=== PATIENT | female | born 1985 | race Caucasian/White ===

== ENCOUNTER 2022-12-06 13:41 | Outpatient (CLI) | payer OTHER, SELFPAY | END 2022-12-06 13:42 | disposition home or self-care (01) | LOC: ANHBWCAUD 13:42 | PROVIDERS: Visit Provider Otolaryngology | DX: H90.3 Sensorineural hearing loss, bilateral (principal) | CPT/HCPCS: 92557; 92567 ==

== ENCOUNTER 2024-08-31 14:35 | Emergency (ER) | payer SELFPAY ==
--- OUTSIDE RECORDS SUMMARY | 2024-08-31 14:37 | XMS_ITS | Clinical Summary ---
Author Organization [facility] Address [address] [place] [address] Phone Care Team Providers Care Media Relations Intern Name Role Phone Provider, None Primary Care Provider Unavailabl e Allergies Active Allergy Reactions Criticality Noted Date Comments Amoxicillin Hives 07/15/2018 Ciprofloxacin Hives 07/15/2018 Codeine Anaphylaxis 07/15/2018 Prednisone Hives 07/15/2018 Medications No known medications Social History Tobacco Use Types Packs/Day Years Used Date Smoking Tobacco: Every Day Cigarettes Smokeless Tobacco: Never Alcohol Use Standard Drinks/Week Comments Not Currently 0 (1 standard drink = 0.6 oz pur e alcohol) Comments No Sex and Gender Information Value Date Recorded Sex Assigned at Not on file Legal Sex Female 12:28 AM CDT Gender Identity Not on file Sexual Orientation Not on file Last Filed Vital Signs Vital Sign Reading Time Taken Comments Blood Pressure 133/86 07/15/2018 8:33 PM CDT Pulse 99 07/15/2018 8:33 PM CDT Temperature 38.3 C (101 F) 07/15/2018 7:09 PM CDT Respiratory Rate 18 07/15/2018 8:33 PM CDT Oxygen Saturation 92% 07/15/2018 8:33 PM CDT Inhaled Oxygen Concentration - - Weight 136.1 kg (300 lb) 07/15/2018 7:09 PM CDT Height 167.6 cm (5' 6 ) 07/15/2018 7:09 PM CDT Body Mass Index 48.42 07/15/2018 7:09 PM CDT Plan of Treatment Not on file Insurance MEDICAID [facility] Care Teams Media Relations Intern Relationship Specialty Start Date End Date Provider, None [place] PCP - General 07/15/18
--- OUTSIDE RECORDS SUMMARY | 2024-08-31 14:37 | XMS_ITS | Referral Summary ---
Author Organization [facility] Healthcare Address [address] [place] [address] Care Team Providers Care Growth Media Mixer Mushroom Name Role Phone Cheryl Medina ALEX Primary Care Provider [phone] Allergies Active Allergy Reactions Criticality Noted Date Comments Azithromycin Swelling Medium 07/22/2023 Ciprofloxacin Rash,Other (See comments) Reaction: RASH, ITCH, Codeine Angioedema Medium Reaction: FACIAL SWELLING, Penicillins Itching Reaction: ITCHING Prednisone Sulfamethoxazole Hives Medium 07/22/2023 Medications traMADoL (ULTRAM) 50 mg tablet Take 1 tablet (50 mg total) by mouth every 6 (six) hours 20 tablet 07/22/2023 Active Social History Tobacco Use Types Packs/Day Years Used Date Smoking Tobacco: Every Day Cigarettes Tobacco Cessation:Ready to Q uit: Not Asked; Counseling Given: Not Answered Personal Safety Answer Date Recorded Have you ever been in or are you currently in a harmful physical or emotional relationship or is someone making you feel afraid or unsafe? Denies 07/22/2023 Comments No Sex and Gender Information Value Date Recorded Sex Assigned at Not on file Legal Sex Female 3:[address] Gender Identity Not on file Sexual Orientation Not on file Last Filed Vital Signs Vital Sign Reading Time Taken Comments Blood Pressure 154/103 07/22/2023 11:55 AM CDT Pulse 77 07/22/2023 11:55 AM CDT Temperature 36.8 C (98.3 F) 07/22/2023 7:59 AM CDT Respiratory Rate 15 07/22/2023 11:55 AM CDT Oxygen Saturation 99% 07/22/2023 11:55 AM CDT Inhaled Oxygen Concentration - - Weight 133.4 kg (294 lb) 07/22/2023 8:00 AM CDT Height 167.6 cm (5' 6 ) 07/22/2023 8:00 AM CDT Body Mass Index 47.45 07/22/2023 8:00 AM CDT Plan of Treatment Not on file Insurance [facility] Care Teams Growth Media Mixer Mushroom Relationship Specialty Start Date End Date Cheryl Medina NP [address] [place] [address] PCP - General Nurse Practitioner 07/22/23
--- OUTSIDE RECORDS SUMMARY | 2024-08-31 14:37 | XMS_ITS | Clinical Summary ---
Author Organization [facility] Healthcare Address [address] [place] [address] Care Team Providers Care Head Of Commission Department Name Role Phone Cheryl Medina ALEX Primary Care Provider [phone] Allergies Active Allergy Reactions Criticality Noted Date Comments Azithromycin Swelling Medium 07/22/2023 Ciprofloxacin Rash,Other (See comments) Reaction: RASH, ITCH, Codeine Angioedema Medium Reaction: FACIAL SWELLING, Penicillins Itching Reaction: ITCHING Prednisone Sulfamethoxazole Hives Medium 07/22/2023 Medications traMADoL (ULTRAM) 50 mg tablet Take 1 tablet (50 mg total) by mouth every 6 (six) hours 20 tablet 07/22/2023 Active Surgical History Surgery Date Site/Laterality Comments TUBAL LIGATION Medical History Medical History Date Comments Hypothyroidism Social History Tobacco Use Types Packs/Day Years [...] on file Legal Sex Female 3:15 AM 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 Gender Identity Not on file Sexual Orientation Not on file Obstetrics History Last Filed Vital Signs Vital Sign Reading [...] 07/22/2023 8:00 AM CDT Plan of Treatment Health Maintenance Due Date Last Done Comments Breast Cancer Screening-Mammogram 1984 Cervical Cancer Screening 1984 Depression Screening 1984 Hepatitis C Screening 1984 DTaP/Tdap/Td Vaccine (1 - Tdap) 01/10/1995 Varicella Vaccines (1 of 2 - 13+ 2-dose series) 01/10/1997 Hepatitis B Screening 01/10/2002 Regular Well Visit/Exam 18-64 01/10/2002 Pneumococcal vaccine <65 (1 of 2 - PCV) 01/10/2003 Influenza Vaccine (Season Ended) 2025 HPV Vaccines Aged Out No longer eligi ble based on patient's age to complete this topic Insurance [facility] Care Teams Head Of Commission Department Relationship Specialty Start Date End Date Cheryl Medina NP [address] [place] [address] PCP - General Nurse Practitioner 07/22/23
--- OUTSIDE RECORDS SUMMARY | 2024-08-31 14:37 | XMS_ITS | Clinical Summary ---
Author Organization [facility] Address [address] [place] [address] Care Team Providers Care Planing Machine Operator Name Role Phone Unavailable Primary Care Provider Unavailabl e Source Comments [facility],non-owned Affiliates and Associated Physician Practices is amultiple site organization consisting of ambulatory clinics and hospital sitesin [place], [place], [place] and [place]. This disclosure is being madepursuant to the Care Everywhere program and may not contain all information available regarding this patient. Last updated 18.[facility] Allergies Active Allergy Reactions Criticality Noted Date Comments Ciprofloxacin Rash Medium 04/25/2016 Codeine Swelling High 04/25/2016 Penicillins Urticaria Medium 04/25/2016 Medications * Be aware that medications may not be up to date on this document. Alwaysverify current medications with the patient. No known medications Social History Tobacco Use Types Packs/Day Years Used Date Smoking Tobacco: Every Day Comments Unknown Sex and Gender Information Value Date Recorded Sex Assigned at Not on file Legal Sex Female 10:17 AM CONTACT LENS EDGE BUFFER Gender Identity Not on file Sexual Orientation Not on file Last Filed Vital Signs Vital Sign Reading Time Taken Comments Blood Pressure 110/82 04/25/2016 10:32 AM CONTACT LENS EDGE BUFFER Pulse 77 04/25/2016 10:32 AM CONTACT LENS EDGE BUFFER Temperature 37.2 C (98.9 F) 04/25/2016 10:32 AM CONTACT LENS EDGE BUFFER Respiratory Rate - - Oxygen Saturation - - Inhaled Oxygen Concentration - - Weight 97.5 kg (215 lb) 04/25/2016 10:32 AM CONTACT LENS EDGE BUFFER Height 170.2 cm (5' 7 ) 04/25/2016 10:32 AM CONTACT LENS EDGE BUFFER Body Mass Index 33.67 04/25/2016 10:32 AM CONTACT LENS EDGE BUFFER Plan of Treatment Health Maintenance Due Date Last Done Comments LIPID TESTING 1984 MAMMOGRAM 1984 HIV SCREENING 01/10/1999 HEPATITIS C SCREENING 01/06/2002 DTAP/TDAP/TD VACCINES (1 - Tdap) 01/10/2003 HEPATITIS B VACCINE (1 of 3 - 19+ 3-dose series) 01/10/2003 COVID-19 VACCINE (1 - 2023-2 5 season) 2024 DEPRESSION SCREENING 05/07/2024 INFLUENZA VACCINE (Season Ended) 2025 ZOSTER VACCINE (1 of 2) 01/10/2034 HIB VACCINE Aged Out No longer eligi ble based on patient's age to complete this topic HPV VACCINE Aged Out No longer eligi ble based on patient's age to complete this topic MENINGOCOCCAL (Group B) VACC INE SHARED DECISION-MAKING Aged Out No longer eligibl e based on patient's age to complete this topic MENINGOCOCCAL GROUPS A/C/Y/W VACCINE Aged Out No longer eligible b ased on patient's age to complete this topic PNEUMOCOCCAL VACCINE Aged Out No long er eligible based on patient's age to complete this topic Insurance [employer] [facility] MEDICAID - [place]
[2024-08-31 14:39] VITALS: BP 141/87; PULSE 87; RESP 16; TEMP 36.3; O2SAT 100
--- NOTE | 2024-08-31 15:50 | ED_ITS ---
HPI - General Adult General Chief complaint: Skin/Abscess/Foreign Body Stated complaint: Rash Source: patient Mode of arrival: ambulatory History of Present Illness HPI narrative: Pt presents for evaluation of a rash. Symptom onset two weeks ago. Symptoms were initially under her breasts. She called her primary care provider's office and was given a prescription for nystatin topical cream. It was not helping. She started applying hydrocortisone and had some relief of the itching. She contacted her primary care provider due to persistence of the symptoms with nystatin. She was then given a prescription for ketoconazole. She tried that without any improvement. She now has symptoms on her abdomen and also to the bilateral arms. She applied some triamcinolone to the left upper extremity today and rash has improved in appearance and in the associated itching. She indicates she has taken prednisone in the past. The first time she took it she felt like she was withdrawing from the medication when tapering off. She took the medication for approximately seven days. She also had a rash associated with it. She was given prednisone a second time for a different issue and states she tolerated the medication for approximately 3-4 days without experiencing symptoms she thought were related to withdrawal and without associated rash. Her primary provider had discontinued the medication after 3-4 days because she changed her to another medication. Patient denies any new lotions, soaps, detergents, topical products. No new medications or foods. She has not been exposed to poison osmany. She denies any difficulty breathing or swallowing. Related Data Allergies Allergy/AdvReac Type Severity Reaction Status Date / Time azithromycin Allergy Severe swelling Verified 08/31/24 14:46 loratadine Allergy Severe swelling Verified 08/31/24 14:46 ciprofloxacin Allergy Unknown Rash Verified 08/31/24 14:46 codeine Allergy Unknown Swelling Verified 08/31/24 14:46 Penicillins Allergy Unknown Rash Verified 08/31/24 14:46 prednisone Allergy Unknown Dizziness Verified 08/31/24 14:46 Review of Systems Review of Systems: CONSTITUTIONAL: Denies fever, chills, or sweats. EYES: Denies visual changes, redness, or discharge. ENT: Denies rhinorrhea, congestion, sore throat, or otalgia. CARDIOVASCULAR: Denies chest pain, palpitations, or edema. RESPIRATORY: Denies cough or dyspnea. GASTROINTESTINAL: Denies abdominal pain, nausea, vomiting, or diarrhea. GENITOURINARY: Denies dysuria or hematuria. SKIN: Reports pruritic rash to the chest, abdomen, bilateral upper extremities. MUSCULOSKELETAL: Denies back pain, joint pain, or myalgia. NEUROLOGIC: Denies headache, numbness, dizziness, or weakness. PSYCHIATRIC: Reports anxiety. Denies depression. PMFSH Past Medical History Medical History Anxiety Thyroid disorder Surgical History Surgical History No pertinent past surgical history Family History Family History Mother Family history non-contributory Social History Social History Smoking status: Never smoker Substance use: never Gender identity (if verbalized by the patient): Female Spiritual care concerns: No Exam 2 Narrative: GENERAL: Well-appearing, well-nourished, and in no acute distress. HEAD: Normocephalic, atraumatic. EYES: PERRLA and EOMI. ENT: Nares clear, no rhinorrhea or epistaxis. Mucous membranes moist. Oropharynx without tonsillar hypertrophy exudate or other lesions. Bilateral TMs pearly pham nonbulging NECK: Supple. No adenopathy or masses. No carotid bruits or JVD CHEST: Clear to auscultation. No respiratory distress. No wheezes rales or rhonchi HEART: Regular rate and rhythm. No murmur heard. Normal peripheral pulses. ABDOMEN: Soft, nontender, nondistended, normal active bowel sounds. EXTREMITIES: Normal range of motion. No edema. SKIN: There is a diffuse macular rash noted to the chest, abdomen, bilateral upper extremities NEURO: No focal deficits. Alert and oriented x3. PSYCH: Normal mood and affect. Course Course Emergency Course: This is a 39-year-old female who presented for evaluation of a pruritic rash. This does not seem consistent with tinea as rash does not appear consistent with that, and she has not responded to 2 different antifungals. She has responded to topical steroids. It sounds like she has intermittently tolerated steroids by mouth in the past. She requested a prescription today. We provider her with an injection of solumedrol and will dc with medrol dose praveena. Vistaril should help with redness, itching and anxiety. She has responded favorably to both triamcinolone and hydrocortisone so will discharge with triamcinolone today. She should follow-up with her primary care provider and go to the ER for difficulty breathing or swelling. Patient in agreement with plan of care. Vital Signs Vital signs: Vital Signs Temperature 36.3 C L 08/31/24 14:39 Pulse Rate 87 08/31/24 14:39 Respiratory Rate 16 08/31/24 14:39 Blood Pressure 141/87 H 08/31/24 14:39 Pulse Oximetry 100 08/31/24 14:39 Oxygen Delivery Room Air 08/31/24 14:39 Temperature 36.3 C L 08/31/24 14:39 Pulse Rate 87 08/31/24 14:39 Respiratory Rate 16 08/31/24 14:39 Blood Pressure 141/87 H 08/31/24 14:39 Pulse Oximetry 100 08/31/24 14:39 Oxygen Delivery Room Air 08/31/24 14:39 Medical Decision Making Vital Signs Vital Signs: Vital Signs Temperature 36.3 C L 08/31/24 14:39 Pulse Rate 87 08/31/24 14:39 Respiratory Rate 16 08/31/24 14:39 Blood Pressure 141/87 H 08/31/24 14:39 Pulse Oximetry 100 08/31/24 14:39 Oxygen Delivery Room Air 08/31/24 14:39 Temperature 36.3 C L 08/31/24 14:39 Pulse Rate 87 08/31/24 14:39 Respiratory Rate 16 08/31/24 14:39 Blood Pressure 141/87 H 08/31/24 14:39 Pulse Oximetry 100 08/31/24 14:39 Oxygen Delivery Room Air 08/31/24 14:39 Discharge Plan Discharge Clinical Impression: Dermatitis Patient Disposition: Home Condition: Stable Instructions: Antibiotic Form, Dermatitis (ED) Patient Language: Swedish Prescriptions: New methylprednisolone 4 mg tablets,dose pack See Rx Instructions .ROUTE .COMPLEX Qty: 21 0RF Rx Instructions: for 6 days triamcinolone acetonide 0.1 % cream 1 applic topical QID Qty: 453.6 0RF hydroxyzine pamoate 25 mg capsule 25 - 50 mg PO TID Qty: 30 0RF Follow-up/Referrals: Medina,Cheryl Duarte APN [Primary Care Provider] - Time of Disposition: 15:49
[2024-08-31] MEDS: methylPREDNISolone SOD SUCC 125 MG VIAL IM (15:51)
== END 2024-08-31 16:02 | disposition home or self-care (01) ==
PROVIDERS: Emergency Provider Nurse Practitioner; PCP Nurse Practitioner Family
DX: L30.9 Dermatitis, unspecified (principal)
CPT/HCPCS: 96372; 99203; G0463; J2919